=== PATIENT | male | born 1950 | race Two or more races ===

== ENCOUNTER 2018-11-29 01:43 | Emergency (ER) | payer OTHER ==
[~2018-11-29] VITALS: Ht 175.3 cm; Wt 95.3 kg
[2018-11-29] VITALS (7 sets, daily range): BP systolic 119–156; BP diastolic 69–91
--- NOTE | 2018-11-29 01:50 | NUR ---
ED Nurse Note: PATIENT PRESENTS WITH ABDOMINAL PAIN 8/10, X TWO DAYS.
--- NOTE | 2018-11-29 01:51 | NUR ---
ED Nurse Note: PT IS BULGARIAN SPEAKING ONLY, UNDERSTANDS FEW KAZAKH WORDS PT IS AOX4
[2018-11-29] MEDS ORDERED: Morphine Sulfate 4mg/ml Inj (IV USE ONLY) IVP ONE (02:30)
[2018-11-29 02:50] LABS: MEAN CORPUSCULAR VOLUME 84 FL (80-99); PLATELET COUNT 320 K/UL (150-450); RED BLOOD COUNT 5.61 M/UL (4.70-6.10); RED CELL DISTRIBUTION WIDTH 11.2 % (11.6-14.8)
--- NOTE | 2018-11-29 02:50 | NUR ---
ED Nurse Note: PT VSS STABLE PT IS RESTING IN BED, PT IS CONTINENT AND ABLE TO VOID ON HIS OWN
[2018-11-29 02:53] LABS: ANION GAP 12 mmol/L (5-15); BLOOD UREA NITROGEN 17 mg/dL (7-18); CALCIUM 10.4 MG/DL (8.5-10.1); CARBON DIOXIDE 27 MMOL/L (21-32); CHLORIDE 98 MMOL/L (98-107); CREATININE 0.9 MG/DL (0.55-1.30); POTASSIUM 3.5 MMOL/L (3.5-5.1); SODIUM 137 MMOL/L (136-145)
[2018-11-29 02:54] LABS: INR 0.9 (0.9-1.1)
[2018-11-29 02:57] LABS: ALANINE AMINOTRANSFERASE 32 U/L (12-78); ALBUMIN 4.3 G/DL (3.4-5.0); ALKALINE PHOSPHATASE 96 U/L (46-116); ASPARTATE AMINO TRANSFERASE 20 U/L (15-37); BILIRUBIN,TOTAL 0.7 MG/DL (0.2-1.0); CREATINE KINASE 115 U/L (26-308)
--- NOTE | 2018-11-29 03:56 | Emergency Room Report ---
History of Present Illness General Chief Complaint: Abdominal Pain Source: Patient Present Illness HPI Patient presents with one day of epigastric pain and vomiting. He's also had some watery diarrhea. The vomitus is of watery also. He felt chills but denies any fever. He's had pain like this in the past. He denies any dysuria. The pain is 7/10 and constant. He's not taking any medication for it aside from antacid. He states he's had abdominal pain like this before. He's never had to have surgery. He doesn't know the diagnosis in the past. He feels that this is something that will get better just with treatment with IV hydration. The patient has a history of hypertension and diabetes. Never with surgery on abdomen. He states he has an immigration hearing tomorrow and wants to go to this. Allergies: Coded Allergies: No Known Allergies (Unverified , 11/29/18) Patient History Past Medical History: see triage record Social History: Denies: smoking, alcohol use, drug use Social History Narrative home Reviewed Nursing Documentation: PMH: Agreed; PSxH: Agreed Nursing Documentation-PMH Hx Hypertension: Yes Hx Diabetes: Yes Review of Systems All Other Systems: negative except mentioned in HPI Physical Exam Vital Signs Date Time Temp Pulse Resp B/P (MAP) Pulse Ox O2 Delivery O2 Flow Rate FiO2 11/29/18 01:42 97.2 88 16 156/91 98 11/29/18 02:26 Room Air Sp02 EP Interpretation: reviewed, normal General Appearance: well appearing, no apparent distress, GCS 15 Head: normocephalic, atraumatic Eyes: bilateral eye normal inspection, bilateral eye PERRL ENT: moist mucus membranes Neck: supple Respiratory: lungs clear, normal breath sounds Cardiovascular #1: regular rate, rhythm Cardiovascular #2: 2+ radial (R) Gastrointestinal: normal inspection, normal bowel sounds, no mass, non- distended, no rebound, guarding - mid abdomen, tenderness Genitourinary: no CVA tenderness Musculoskeletal: back normal, normal range of motion, no calf tenderness Neurologic: alert, oriented x3, grossly normal Psychiatric: mood/affect normal Skin: normal inspection, warm/dry Medical Decision Making Diagnostic Impression: Primary Impression: Abdominal pain Qualified Codes: R10.84 - Generalized abdominal pain Additional Impressions: Leukocytosis Qualified Codes: D72.828 - Other elevated white blood cell count Possible SBO ER Course Patient presents with abdominal pain, vomiting with mild diarrhea. Differential includes viral gastroenteritis, pancreatitis, diverticulitis amongst others. Patient will be evaluated with chest x-ray, abdominal x-ray and labs. Patient will receive IV hydration and analgesia. Patient with leukocytosis. Abdomen with small bowel layering. There is gas in the rectum. CT abdomen and pelvis ordered. cefepime ordered. Await CT abdomen/pelvis. CT below. Discussed with Dr. Glez who accepts the patient. Laboratory Tests Test 11/29/18 02:11 11/29/18 04:01 White Blood Count 17.0 K/UL (4.8-10.8) H Red Blood Count 5.61 M/UL (4.70-6.10) Hemoglobin 16.0 G/DL (14.2-18.0) Hematocrit 47.0 % (42.0-52.0) Mean Corpuscular Volume 84 FL (80-99) Mean Corpuscular Hemoglobin 28.5 PG (27.0-31.0) Mean Corpuscular Hemoglobin Concent 34.1 G/DL (32.0-36.0) Red Cell Distribution Width 11.2 % (11.6-14.8) L Platelet Count 320 K/UL (150-450) Mean Platelet Volume 6.3 FL (6.5-10.1) L Neutrophils (%) (Auto) % (45.0-75.0) Lymphocytes (%) (Auto) % (20.0-45.0) Monocytes (%) (Auto) % (1.0-10.0) Eosinophils (%) (Auto) % (0.0-3.0) Basophils (%) (Auto) % (0.0-2.0) Prothrombin Time 10.0 SEC (9.30-11.50) Prothrombin Time INR 0.9 (0.9-1.1) PTT 27 SEC (23-33) Sodium Level 137 MMOL/L (136-145) Potassium Level 3.5 MMOL/L (3.5-5.1) Chloride Level 98 MMOL/L (98-107) Carbon Dioxide Level 27 MMOL/L (21-32) Anion Gap 12 mmol/L (5-15) Blood Urea Nitrogen 17 mg/dL (7-18) Creatinine 0.9 MG/DL (0.55-1.30) Estimate Glomerular Filtration Rate > 60 mL/min (>60) Glucose Level 187 MG/DL (74-106) H Calcium Level 10.4 MG/DL (8.5-10.1) H Total Bilirubin 0.7 MG/DL (0.2-1.0) Aspartate Amino Transferase (AST) 20 U/L (15-37) Alanine Aminotransferase (ALT) 32 U/L (12-78) Alkaline Phosphatase 96 U/L (46-116) Total Creatine Kinase 115 U/L (26-308) Troponin I 0.000 ng/mL (0.000-0.056) Total Protein 8.6 G/DL (6.4-8.2) H Albumin 4.3 G/DL (3.4-5.0) Globulin 4.3 g/dL Albumin/Globulin Ratio 1.0 (1.0-2.7) Lipase 141 U/L (73-393) Urine Color Yellow Urine Appearance Clear Urine pH 5 (4.5-8.0) Urine Specific D[place] 1.020 (1.005-1.035) Urine Protein Negative (NEGATIVE) Urine Glucose (UA) Negative (NEGATIVE) Urine Ketones 4+ (NEGATIVE) H Urine Blood Negative (NEGATIVE) Urine Nitrite Negative (NEGATIVE) Urine Bilirubin Negative (NEGATIVE) Urine Urobilinogen 1 MG/DL (0.0-1.0) H Urine Leukocyte Esterase Negative (NEGATIVE) EKG Diagnostic Results Rate: normal Rhythm: NSR ST Segments: no acute changes Rhythm Strip Diag. Results EP Interpretation: yes Rhythm: NSR, no PVC's, no ectopy Chest X-Ray Diagnostic Results Chest X-Ray Diagnostic Results : Chest X-Ray Ordered: Yes # of Views/Limited/Complete: 1 View Indication: Other Interpretation: no consolidation, no effusion, no pneumothorax Impression: No acute disease Electronically Signed by: Electronically signed by Micah Lopez MD Other X-Ray Diagnostic Results Other X-Ray Diagnostic Results : X-Ray ordered: Abdomen # of Views/Limited Vs Complete: 2 View Indication: Pain EP Interpretation: Yes Interpretation: other - Small bowel layering with minimal dilatation. Gas and rectum no masses Impression: Other Electronically Signed by: Electronically signed by Micah Lopez MD CT/MRI/US Diagnostic Results CT/MRI/US Diagnostic Results : Imaging Test Ordered: abd/pelvis Impression Mildly distended air-fluid small bowel loops seen measuring up to 3.2 similar diameter. Transition point likely within the mid abdomen. Fecal like material seen proximal to this transition point. Findings are concerning for partial versus early conversion to complete small bowel obstruction. Colonic diverticulosis No free air. Trace free fluid adjacent to dilated small bowel loops. Prostatomegaly with findings suggestive of chronic bladder outlet obstruction. Cystitis cannot be definitely excluded. Solid organs grossly unremarkable Last Vital Signs Date Time Temp Pulse Resp B/P (MAP) Pulse Ox O2 Delivery O2 Flow Rate FiO2 11/29/18 08:13 97.2 75 17 135/78 98 Room Air Status: improved Disposition: XFER SHT-TRM HOSP Condition: Serious Micah Lopez MD Nov 29, 2018 03:55
[2018-11-29] MEDS ORDERED: Isovue-300 100ml vial INJ PRN (04:00)
[2018-11-29 04:39] LABS: APPEARANCE,URINE CLEAR; BILIRUBIN, URINE NEGATIVE (NEGATIVE); GLUCOSE, URINE (UA) NEGATIVE (NEGATIVE); KETONES,URINE 4+ (NEGATIVE); LEUKOCYTE ESTERASE ,URINE NEGATIVE (NEGATIVE); NITRITE,URINE NEGATIVE (NEGATIVE); PH,URINE 5 (4.5-8.0); UROBILINOGEN,URINE 1 MG/DL (0.0-1.0)
[2018-11-29 04:53] LABS: COLOR,URINE YELLOW; PROTEIN,URINE NEGATIVE (NEGATIVE)
[2018-11-29] MEDS ORDERED: Cefepime HCl 1 GM in D5W 55 ML IVPB ONE (05:15)
--- NOTE | 2018-11-29 05:53 | NUR ---
ED Nurse Note: PT WENT FOR CT WITH CONTRAST
--- NOTE | 2018-11-29 06:00 | NUR ---
ED Nurse Note: PT RETURNED FROM CT
--- NOTE | 2018-11-29 07:13 | NUR ---
HAND-OFF: Report given to DICK LEONARD.
--- NOTE | 2018-11-29 07:13 | NUR ---
ED Nurse Note: ATTEMPTED TO GIVE TELEPHONE REPORT TO DICK HAYES , UNABLE TO REPORT
--- NOTE | 2018-11-29 07:15 | NUR ---
Note caron in EDM - 11/29/18 at 0735 by TIFFANYO ED Nurse Note: received patient in bed. a/o x4 c/o pain on the left hip 07/11. IV site is intact patent, vss, see flowsheet.
--- NOTE | 2018-11-29 07:15 | NUR ---
ED Nurse Note: received patient in bed. No sign of acute distress. IV site is intact, patent. a/o x4, asleep, but easily arousable by name.
--- NOTE | 2018-11-29 07:31 | NUR ---
Lori reardon in EDM - 11/29/18 at 0735 by NATY ED Nurse Note: patient is being transferred by the [facility] ambulance with all of her belongings, patient is stable ERMD ok to transfer
[2018-11-29] MEDS ORDERED: Morphine Sulfate 2mg/ml Inj(IV/IM USE ONLY) ONE (08:03)
--- NOTE | 2018-11-29 08:13 | NUR ---
ED Nurse Note: patient is being transferred to [facility], Report given to Marti JENNINGS over the phone patient transferred via ambulance with all his belongings.
[2018-11-29] MEDS ORDERED: Morphine Sulfate 2mg/ml Inj(IV/IM USE ONLY) IVP ONE (08:15)
--- NOTE | 2018-11-29 08:45 | Diagnostic Imaging Report ---
Clinical Indication: Abdominal pain for 4 days Technique: Patient ingested a limited amount of oral contrast. IV administration nonionic contrast. Venous phase spiral acquisition obtained through the abdomen and pelvis. Multiplanar reconstructions were generated. Total dose length product 755 mGycm. CTDIvol(s) 13 mGy. Dose reduction achieved using automated exposure control Comparison: none Findings: Mid abdominal small bowel loops are dilated, fluid-filled, and contained small bowel feces distally. There is a transition to normal caliber small bowel in the mesenteric root to the left of midline, images 39 through 41 of series 2. One of transition appears to be at the proximal to mid ileum. Distal ileum is collapsed. The appendix is normal. There is colonic diverticulosis. No evidence of diverticulitis. No free or loculated intraperitoneal gas or fluid is evident. Distal esophagus, duodenum are unremarkable. The stomach is somewhat distended. The liver, gallbladder, bile ducts, pancreas, spleen, adrenals, right kidney are unremarkable. Left kidney demonstrates a 1 cm diameter lower pole cyst. There is minimal perinephric fat stranding bilaterally. No retroperitoneal or mesenteric mass or adenopathy. No pelvic mass or adenopathy. The prostate is prominent. There is equivocal bladder wall thickening, although this is probably an artifact of under distention. There is mild scoliotic deformity at the lumbosacral junction with minimal secondary degenerative change. The bones are otherwise unremarkable. There are posterior dependent atelectatic changes at the lung bases Impression: Dilated small bowel loops, with fluid and small bowel feces, transition to normal caliber at the level the proximal to mid ileum. Findings are concerning for partial small bowel obstruction. Colonic diverticulosis. No evidence of diverticulitis Mild prostatomegaly Equivocal bladder wall thickening, probably an artifact of under distention, cystitis not completely excludable. Correlate with clinical findings Other findings as noted, including minimal lumbar scoliosis and spondylosis, left lower pole renal cyst This agrees with the preliminary interpretation provided overnight by [employer] teleradiology service. The CT scanner at [facility] is accredited by the [employer] and the scans are performed using protocols designed to limit radiation exposure to as low as reasonably achievable to attain images of sufficient resolution adequate for diagnostic evaluation.
--- NOTE | 2018-11-29 11:21 | Diagnostic Imaging Report ---
Indication: Abdominal pain Technique: Supine view of the abdomen Comparison: none Findings: Distended small bowel loops are seen, probably in the left mid abdomen. Some of these containing small bowel feces. No masses or unusual calcifications Impression: Dilated small bowel loops with small bowel feces, raising concern for small bowel obstruction. This is confirmed on subsequent CT scan
--- NOTE | 2018-11-29 11:22 | Diagnostic Imaging Report ---
Indication: Chest congestion Technique: One view of the chest Comparison: none Findings: Atelectatic changes are seen in the left lung base. The lungs and pleural spaces are otherwise clear. The heart size is normal. Impression: Minimal left basilar atelectasis No acute process otherwise
== END 2018-11-29 08:13 | disposition short-term general hospital (02) ==
LOC: EDBD 01:43 → EMR 01:58
DX: R10.13 Epigastric pain (principal); D72.829 Elevated white blood cell count, unspecified; E11.9 Type 2 diabetes mellitus without complications; I10 Essential (primary) hypertension; K57.30 Diverticulosis of large intestine without perforation or abscess without bleeding
CPT/HCPCS: 36415; 71045; 74018; 74177; 80053; 81003; 82550; 83690; 84484; 85025; 85610; 85730; 93005; 96361; 96365; 96367; 99285; J0692; J2270; J2405; Q9967; S0028